=== PATIENT | male | born 1955 ===

== ENCOUNTER 2019-02-25 08:39 | Outpatient (CLI) | payer MEDICARE, OTHER ==
[2019-02-25 10:20] LABS: Chol/HDL Ratio 3.37 %
== END 2019-02-25 08:40 | disposition home or self-care (01) ==
LOC: LAB 08:39
PROVIDERS: ATTEND Internal Medicine
DX: E78.5 Hyperlipidemia, unspecified (principal); E11.9 Type 2 diabetes mellitus without complications; I10 Essential (primary) hypertension
CPT/HCPCS: 36415; 80061; 83036